=== PATIENT | male | born 1990 | race Caucasian/White ===

== ENCOUNTER 2017-06-23 15:39 | Emergency (ER) | payer OTHER ==
[~2017-06-23] VITALS: Ht 180.3 cm; Wt 68.0 kg
[2017-06-23 16:00] VITALS: BP 160/61
[2017-06-23] MEDS ORDERED: LORazepam Inj 2mg/ml 1ml IV ONE (16:30)
[2017-06-23] MEDS ORDERED: NS 250 ML IVPB ONE (16:45)
[2017-06-23 17:01] LABS: BASOPHILS % (AUTO) 1.1 % (0.0-2.0); LYMPHOCYTES % (AUTO) 23.2 % (20.0-45.0); MEAN CORPUSCULAR HEMOGLOBIN 30.8 PG (27.0-31.0); MEAN CORPUSCULAR HGB CONC 33.2 G/DL (32.0-36.0); MEAN CORPUSCULAR VOLUME 93 FL (80-99); MEAN PLATELET VOLUME 6.8 FL (6.5-10.1); MONOCYTES % (AUTO) 9.8 % (1.0-10.0); NEUTROPHILS % (AUTO) 64.9 % (45.0-75.0); PLATELET COUNT 294 K/UL (150-450); RED CELL DISTRIBUTION WIDTH 10.6 % (11.6-14.8); WHITE BLOOD COUNT 5.5 K/UL (4.8-10.8)
[2017-06-23 17:14] LABS: ALANINE AMINOTRANSFERASE 21 U/L (12-78); ALBUMIN/GLOBULIN RATIO 1.3 (1.0-2.7); ANION GAP 12 mmol/L (5-15); ASPARTATE AMINO TRANSFERASE 19 U/L (15-37); CALCIUM 9.8 MG/DL (8.5-10.1); CARBON DIOXIDE 26 MMOL/L (21-32); CHLORIDE 101 MMOL/L (98-107); GLOMERULAR FILTRATION RATE > 60 mL/min (>60); POTASSIUM 4.3 MMOL/L (3.5-5.1); SODIUM 139 MMOL/L (136-145); THYROID STIMULATING HORMONE 0.952 uiU/mL (0.360-3.740); TOTAL PROTEIN 8.4 G/DL (6.4-8.2)
--- NOTE | 2017-06-23 17:48 | Emergency Room Report ---
History of Present Illness General Chief Complaint: Palpitations Source: Patient Present Illness HPI 26-year-old male presents to the emergency department complaining of palpitations with increase anxiousness times one hour. Patient reports multiple episodes over the past 5 days. Patient denies recent travel, recent illnesses, fevers, chills or history of cardiac disease. Patient reports history of anxiety over 5 years ago which responded well to Ativan by mouth and resolved on its own. Patient denies significant changes in weight, night sweats , changes in appetite. Denies familial cardiac history. Denies nausea, vomiting. Patient reports intermittent headaches and feeling as though the pressure in the veins on the side of his head is pulsating. Patient denies visual changes dizziness patient denies syncope or recent head trauma. Denies drug use, excessive caffeine intake, or herbal supplements. Denies recent travel. Denies CP, LOC, AMS, dizziness, Changes in Vision, Sensation, paresthesias, or a sudden severe headache. Allergies: Coded Allergies: No Known Allergies (Unverified , 06/23/17) Patient History Past Medical History: see triage record, other - hx of anxiety over 5 years ago was temporarily put on ativan and resolved on its own. Past Surgical History: none Pertinent Family History: none - NO cardiac hx, no CVA/stroke family hx. Immunizations: UTD Reviewed Nursing Documentation: PMH: Agreed, PSxH: Agreed Nursing Documentation-PMH History Of Psychiatric Problem: Yes - ANXIETY Review of Systems All Other Systems: negative except mentioned in HPI Physical Exam Vital Signs Date Time Temp Pulse Resp B/P (MAP) Pulse Ox O2 Delivery O2 Flow Rate FiO2 06/23/17 15:44 99.5 138 16 158/77 99 Room Air Sp02 EP Interpretation: reviewed, normal General Appearance: alert, GCS 15, non-toxic, mild distress Head: normocephalic, atraumatic Eyes: bilateral eye normal inspection, bilateral eye PERRL ENT: hearing grossly normal, no angioedema, normal voice Neck: full range of motion, supple/symm/no masses Respiratory: chest non-tender, lungs clear, normal breath sounds, speaking full sentences Cardiovascular #1: no edema, normal capillary refill, tachycardia - regular rhythm Gastrointestinal: non tender, soft, no guarding, no rebound Rectal: deferred Musculoskeletal: back normal, gait/station normal, normal range of motion, non- tender, no calf tenderness Neurologic: alert, oriented x3, responsive, motor strength/tone normal, sensory intact, normal gait, speech normal Psychiatric: judgement/insight normal, memory normal, mood/affect normal, no suicidal/homicidal ideation, anxious Skin: normal color, no rash, warm/dry, well hydrated Lymphatic: no adenopathy Medical Decision Making ZACHARY Attestation Dr. Pantoja is my supervising Physician whom patient management has been discussed with. Diagnostic Impression: Primary Impression: Palpitations Additional Impression: Anxious reaction ER Course 26-year-old male presents to the emergency department complaining of palpitations with increase anxiousness times one hour. Patient reports multiple episodes over the past 5 days. Patient denies recent travel, recent illnesses, fevers, chills or history of cardiac disease. Patient reports history of anxiety over 5 years ago which responded well to Ativan by mouth and resolved on its own. Patient denies significant changes in weight, night sweats , changes in appetite. Denies familial cardiac history. Denies nausea, vomiting. Patient reports intermittent headaches and feeling as though the pressure in the veins on the side of his head is pulsating. Patient denies visual changes dizziness patient denies syncope or recent head trauma. Denies drug use, excessive caffeine intake, or herbal supplements. Denies recent travel. Denies CP, LOC, AMS, dizziness, Changes in Vision, Sensation, paresthesias, or a sudden severe headache. Ddx considered but are not limited to anxiety, NV, PE, asthma, thyroid storm, hyperthyroid, EPS just to name a few. Vital signs: are WNL, pt. is afebrile H&PE are most consistent with anxiety attack ORDERS: none required at this time, the diagnosis is clinical - EK BPM Sinus Tachycardia - no acute ST changes reviewed by Dr. Pantoja , his interpretation was scribed by ZACHARY Alicea EKG was repeated and the results were: -EKG #2 : 113 BPM Sinus Tachycardia - no acute ST changes reviewed by Dr. Pantoja , his interpretation was scribed by ZACHARY Alicea -CBC: WNL -CMP: WNL -TSH: WNL -UDS: Negative ED INTERVENTIONS: -Pt placed on cardiac monitoring and IV access was established -Valsalva Maneuver - 1mg Ativan -250cc NS bolus -Review of [employer] web[employer] : No controlled rx's in the last 6 months -re-evaluation pt. reports he is feeling better after ativan administration. VS continue to be stable throughout ED visit. d/w pt. follow up with [facility] for medication management, will give small quantity anxiolytic medications and start on low dose SSRI ( reviewed with Dr. Tracy) DISCHARGE: At this time pt. is stable for d/c to home. Will provide printed patient care instructions, and any necessary prescriptions. Care plan and follow up instructions have been discussed with the patient prior to discharge. Labs Test 06/23/17 16:19 06/23/17 16:40 Urine Opiates Screen Negative (NEGATIVE) Urine Barbiturates Screen Negative (NEGATIVE) Phencyclidine (PCP) Screen Negative (NEGATIVE) Urine Amphetamines Screen Negative (NEGATIVE) Urine Benzodiazepines Screen Negative (NEGATIVE) Urine Cocaine Screen Negative (NEGATIVE) Urine Marijuana (THC) Screen Negative (NEGATIVE) White Blood Count 5.5 K/UL (4.8-10.8) Red Blood Count 5.20 M/UL (4.70-6.10) Hemoglobin 16.0 G/DL (14.2-18.0) Hematocrit 48.3 % (42.0-52.0) Mean Corpuscular Volume 93 FL (80-99) Mean Corpuscular Hemoglobin 30.8 PG (27.0-31.0) Mean Corpuscular Hemoglobin Concent 33.2 G/DL (32.0-36.0) Red Cell Distribution Width 10.6 % (11.6-14.8) Platelet Count 294 K/UL (150-450) Mean Platelet Volume 6.8 FL (6.5-10.1) Neutrophils (%) (Auto) 64.9 % (45.0-75.0) Lymphocytes (%) (Auto) 23.2 % (20.0-45.0) Monocytes (%) (Auto) 9.8 % (1.0-10.0) Eosinophils (%) (Auto) 1.0 % (0.0-3.0) Basophils (%) (Auto) 1.1 % (0.0-2.0) Sodium Level 139 MMOL/L (136-145) Potassium Level 4.3 MMOL/L (3.5-5.1) Chloride Level 101 MMOL/L (98-107) Carbon Dioxide Level 26 MMOL/L (21-32) Anion Gap 12 mmol/L (5-15) Blood Urea Nitrogen 19 mg/dL (7-18) Creatinine 1.0 MG/DL (0.55-1.30) Estimat Glomerular Filtration Rate > 60 mL/min (>60) Glucose Level 120 MG/DL (74-106) Calcium Level 9.8 MG/DL (8.5-10.1) Total Bilirubin 0.7 MG/DL (0.2-1.0) Aspartate Amino Transf (AST/SGOT) 19 U/L (15-37) Alanine Aminotransferase (ALT/SGPT) 21 U/L (12-78) Alkaline Phosphatase 64 U/L (46-116) Total Protein 8.4 G/DL (6.4-8.2) Albumin 4.7 G/DL (3.4-5.0) Globulin 3.7 g/dL Albumin/Globulin Ratio 1.3 (1.0-2.7) Thyroid Stimulating Hormone (TSH) 0.952 uiU/mL (0.360-3.740) EKG Diagnostic Results EP Interpretation: Dr. Pantoja Rate: tachycardiac - 150 BPM Rhythm: NSR ST Segments: no acute changes ASA given to the pt in ED: No PA Scribe Text - EK BPM Sinus Tachycardia - no acute ST changes reviewed by Dr. Pantoja , his interpretation was scribed by ZACHARY Alicea EKG was repeated and the results were: - EK BPM Sinus Tachycardia - no acute ST changes reviewed by Dr. Pantoja , his interpretation was scribed by ZACHARY Alicea Last Vital Signs Date Time Temp Pulse Resp B/P (MAP) Pulse Ox O2 Delivery O2 Flow Rate FiO2 06/23/17 16:00 98.3 143 18 160/61 100 Room Air Disposition: HOME, SELF-CARE Condition: Stable Scripts Escitalopram Oxalate* (LEXAPRO*) 10 Mg Tablet 10 MG ORAL DAILY for For Anxiety, #30 TAB Take half tab on days 1-3 then increase to full tab daily Prov: Sanjana Alicea P.Dale 06/23/17 Lorazepam* (ATIVAN*) 0.5 Mg Tablet 0.5 MG ORAL Q8HR Y for For Anxiety, #9 TAB Prov: Sanjana Alicea 10/28/17 Referrals: NOT CHOSEN IPA/MD,REFERRING (PCP) Departure Forms: Return to Work Return to Work Date: Jun 26, 2017 Work Restrictions: None Return to Full Activity: Jun 26, 2017 Patient Instructions: Palpitations, [id number], Panic Attacks Additional Instructions: Take medications as directed. -Follow up at [facility] Follow up with a Primary Care Provider in 3-5 days may require cardiology consultation if symptoms persist --Please review list of primary care clinics, if you do not already have a primary care provider ! Return sooner to ED if new symptoms occur, or current symptoms become worse. Do not drink alcohol, drive, or operate heavy machinery while taking ATIVAN as this may cause drowsiness. - Please note that this Emergency Department Report was dictated using [employer] software, occasionally this can lead to erroneous entry secondary to interpretation by the dictation equipment. Sanjana Alicea Jun 23, 2017 17:48
[2017-06-23] MEDS ORDERED: ATIVAN0.5 MG ORAL (17:52)
[2017-06-23] MEDS ORDERED: LEXAPRO10 MG ORAL (17:52)
[2017-06-23 18:13] VITALS: BP 149/77
--- NOTE | 2017-06-24 18:34 | Cardiology Report ---
APPROVED REPORT EKG Measurement Heart [id number] Sinus tachycardia Otherwise normal ECG
== END 2017-06-23 18:19 | disposition home or self-care (01) ==
LOC: EMR 17:15
DX: R00.2 Palpitations (principal); F41.1 Generalized anxiety disorder; R51 Headache
CPT/HCPCS: 36415; 80053; 80307; 84443; 85025; 93005; 96361; 96374; 99284